=== PATIENT | female | born 1965 | race Caucasian/White ===

== ENCOUNTER 2019-04-08 01:22 | Emergency (ER) | payer MEDICAID ==
[~2019-04-08] VITALS: Ht 182.9 cm; Wt 106.0 kg
[2019-04-08] MEDS ORDERED: KETOROLAC 60MG/2ML VIAL IM ONE (02:45)
[2019-04-08 04:15] VITALS: BP 125/78
== END 2019-04-08 04:15 | disposition home or self-care (01) ==
LOC: ER 01:22
DX: M19.011 Primary osteoarthritis, right shoulder (principal); F31.9 Bipolar disorder, unspecified; E78.00 Pure hypercholesterolemia, unspecified; I10 Essential (primary) hypertension; I25.2 Old myocardial infarction; Z98.890 Other specified postprocedural states
CPT/HCPCS: 73030; 96372; 99283; J1885

== ENCOUNTER 2019-04-08 06:04 | Emergency (ER) | payer MEDICAID ==
[~2019-04-08] VITALS: Ht 177.8 cm; Wt 114.0 kg
[2019-04-08] MEDS ORDERED: ONDANSETRON HCL 4MG/2ML INJ IV STA (08:23)
[2019-04-08] MEDS ORDERED: KETOROLAC 30MG/ML VIAL IV STA (08:23)
[2019-04-08 08:57] LABS: BASOPHILS % 0.2 % (0.0-2.0); EOSINOPHILS % 1.6 % (0.0-5.0); HEMATOCRIT. 38.3 % (36.0-48.0); HEMOGLOBIN. 13.4 g/dL (12.0-16.0); LYMPHOCYTES % 23.3 % (20.0-50.0); MEAN CORPUSCULAR HEMOGLOBIN 29.4 pg (28.0-32.0); MEAN CORPUSCULAR VOLUME 84.4 fL (81.0-99.0); MEAN PLATELET VOLUME 7.4 fl (7.4-10.4); MONOCYTES % 11.3 % (2.0-8.0); NEUTROPHILS % 63.6 % (40.0-76.0); PLATELET 247 x1000/uL (130-400); RED BLOOD CELL COUNT 4.54 mill/uL (4.2-5.4); RED CELL DISTRIBUTION WIDTH 13.5 % (11.6-14.6)
[2019-04-08 09:04] LABS: CHLORIDE 104 mEq/L (98-107)
[2019-04-08 09:25] LABS: ETHANOL BLOOD < 10 mg/dL
[2019-04-08 09:35] LABS: CLARITY URINE CLEAR (CLEAR); COLOR URINE YELLOW (YELLOW); KETONES URINE TRACE (NEGATIVE); LEUKOCYTE ESTERASE URINE NEGATIVE (NEGATIVE); NITRITE URINE NEGATIVE (NEGATIVE); OCCULT BLOOD URINE NEGATIVE (NEGATIVE); PH URINE 5.5 (4.5-8.0); PROTEIN URINE NEGATIVE (NEGATIVE); SPECIFIC GRAVITY URINE 1.023 (1.005-1.030)
[2019-04-08 10:00] VITALS: BP 124/62
[2019-04-08 10:06] LABS: *AMPHETAMINES SCREEN URINE NEGATIVE (NEGATIVE); *BARBITURATES SCREEN URINE NEGATIVE (NEGATIVE); *BENZODIAZEPINES SCREEN URINE NEGATIVE (NEGATIVE)
[2019-04-08 10:07] LABS: *COCAINE SCREEN URINE NEGATIVE (NEGATIVE); METHADONE URINE SCREEN NEGATIVE (NEGATIVE); OPIATES URINE SCREEN NEGATIVE (NEGATIVE)
[2019-04-08 10:08] LABS: CANNABINOID URINE SCREEN PRESUMTIVE POSITIVE (NEGATIVE)
[2019-04-08 10:48] LABS: PHENCYCLIDINE URINE SCREEN NEGATIVE (NEGATIVE)
== END 2019-04-08 10:28 | disposition home or self-care (01) ==
LOC: ER 06:04
DX: R10.30 Lower abdominal pain, unspecified (principal); R11.2 Nausea with vomiting, unspecified; E78.00 Pure hypercholesterolemia, unspecified; I10 Essential (primary) hypertension; F17.200 Nicotine dependence, unspecified, uncomplicated; Z98.890 Other specified postprocedural states
CPT/HCPCS: 36415; 74176; 80053; 80305; 80320; 81003; 83690; 85025; 96374; 96375; 99284; 99406; J1885; J2405; G0480

== ENCOUNTER 2021-12-08 01:07 | Emergency (ER) | payer MEDICAID, OTHER ==
[~2021-12-08] VITALS: Ht 177.8 cm; Wt 114.0 kg
[2021-12-08] MEDS ORDERED: ALBUTEROL (0.083%) 2.5MG/3ML NEB HHN STA (01:23)
[2021-12-08] MEDS ORDERED: IPRATROPIUM BROMIDE (0.02%) 0.5MG/2.5ML NEB HHN STA (01:23)
[2021-12-08] MEDS ORDERED: PREDNISONE 20MG TABLET PO STA (01:23)
[2021-12-08] MEDS ORDERED: ALBU6.7H9 INH (04:00)
[2021-12-08] MEDS ORDERED: P20 MT (04:00)
[2021-12-08 04:22] VITALS: BP 124/80
== END 2021-12-08 04:23 | disposition home or self-care (01) ==
LOC: ER 01:07
DX: R06.02 Shortness of breath (principal); R06.2 Wheezing; R07.89 Other chest pain; E78.00 Pure hypercholesterolemia, unspecified; I10 Essential (primary) hypertension; Z98.890 Other specified postprocedural states
CPT/HCPCS: 71045; 93005; 99283; J7512

== ENCOUNTER 2024-01-13 14:01 | Emergency (ER) | payer MEDICAID, OTHER ==
[~2024-01-13] VITALS: Ht 180.3 cm; Wt 113.0 kg
[~2024-01-13 14:01] MED LIST: ALBU6.7H3 INH; P20 MT
[2024-01-13 14:10] VITALS: O2SAT 97
[2024-01-13] MEDS ORDERED: OCUFLX LEFTEYE (17:01)
[2024-01-13 18:29] VITALS: BP 128/81; PULSE 84; RESP 20; TEMP 98.3
== END 2024-01-13 18:12 | disposition home or self-care (01) ==
LOC: ER 14:01
DX: H10.32 Unspecified acute conjunctivitis, left eye (principal); I10 Essential (primary) hypertension; E78.00 Pure hypercholesterolemia, unspecified
CPT/HCPCS: 99283